=== PATIENT | male | born 1960 | race Caucasian/White ===

== ENCOUNTER 2021-12-30 08:04 | Outpatient (REF) | payer BC, SELFPAY ==
[2021-12-30 11:46] LABS: Alanine Aminotransferase 29 U/L (0-40); Albumin Level 4.2 g/dL (3.5-5.0); Alkaline Phosphatase 82 U/L (39-117); Anion Gap 8 (12-20); Aspartate Amino Transferase 23 U/L (5-37); Bilirubin Total 0.9 mg/dL (0.0-1.0); Blood Urea Nitrogen 19 mg/dL (9-16); Calcium 9.1 mg/dL (8.4-10.2); Carbon Dioxide 32 mmol/L (22-29); Chloride 106 mmol/L (96-108); Cholesterol 172 mg/dL; Estimated Glomerular Filt Rate > 60; Glucose Fasting 93 mg/dL (60-99); HDL Cholesterol 50 mg/dL; LDL Cholesterol Calculated 105 mg/dl; Potassium 3.9 mmol/L (3.3-5.1); Sodium 142 mmol/L (135-145); Total Protein 6.8 g/dL (6.5-8.0); Triglycerides 88 mg/dL
== END 2021-12-30 08:05 | disposition home or self-care (01) ==
LOC: HO.MANLDS 08:04
PROVIDERS: PCP Internal Medicine; Visit Provider Internal Medicine
DX: Z12.5 Encounter for screening for malignant neoplasm of prostate (principal); I10 Essential (primary) hypertension
CPT/HCPCS: 36415; 80053; 80061; 84153

== ENCOUNTER 2023-08-18 09:59 | Outpatient (REF) | payer BC, SELFPAY ==
[2023-08-18 13:54] LABS: Appearance Urine Clear; Color Urine Yellow; Glucose Urine UA Negative (Negative); Leukocyte Esterase Urine Negative (Negative); Nitrite Urine Negative (Negative); PH 6.5 (5.0-9.0); Specific Gravity - Urine 1.015 (1.005-1.025); Urine Blood Negative (Negative); Urine Ketones Negative (Negative); Urine Protein Negative (Neg-Trace)
== END 2023-08-18 10:00 | disposition home or self-care (01) ==
LOC: HO.MANLDS 09:59
PROVIDERS: Visit Provider Physician Assistant
DX: R31.9 Hematuria, unspecified (principal)
CPT/HCPCS: 81003

== ENCOUNTER → 2025-01-03 08:47 | Outpatient (BNVA) | payer OTHER, SELFPAY | PROVIDERS: PCP Internal Medicine; Visit Provider Physician Assistant | DX: S00.83XA Contusion of other part of head, initial encounter (principal); S70.01XA Contusion of right hip, initial encounter; W18.30XA Fall on same level, unspecified, initial encounter | CPT/HCPCS: 73502; 99204 ==

== ENCOUNTER → 2025-01-08 08:49 | Outpatient (BNVA) | payer OTHER, SELFPAY | PROVIDERS: PCP Internal Medicine; Visit Provider Internal Medicine | DX: S70.02XA Contusion of left hip, initial encounter (principal); W00.0XXA Fall on same level due to ice and snow, initial encounter | CPT/HCPCS: 99213 ==

== ENCOUNTER 2025-01-09 16:02 | Outpatient (REF) | payer OTHER, SELFPAY ==
[2025-01-09 18:45] LABS: Prostate Specific Antigen 0.84 ng/mL (<0.05-4.0)
--- OUTSIDE RECORDS SUMMARY | 2025-01-09 19:37 | XMS_ITS | Continuity of Care Document ---
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 2 OUT OF 3 ELEMENTS: PROBLEMS, DATA OR RISK ELEMENT 1: PROBLEMS ADDRESSED 1 OR MORE CHRONIC ILLNESS WITH EXACERBATION OR 2 OR MORE STABLE CHRONIC ILLNESSES OR 1 UNDIAGNOSED NEW PROBLEM OR 1 ACUTE ILLNESS W/SYMPTOMS OR 1 ACUTE COMPLICATED INJURY ELEMENT 2: DATA MUST MEET 1 OF 3 CATEGORIES CATEGORY 1: REVIEW OF PRIOR EXTERNAL NOTES, REVIEW OF RESULTS, ORDERING OF EACH TEST, ASSESSMENT REQUIRING INDEPENDENT HISTORIAN OR CATEGORY 2: INDEPENDENT INTERPRETATION OF TESTS BY ANOTHER PHYSICIAN OR SPECIALIST OR CATEGORY 3: DISCUSSION OF MGT OR TEST INTERPRETATION W/EXTERNAL PHYSICIAN OR SPECIALIST ELEMENT 3: RISK RISK OF COMPLICATIONS AND/OR MORBIDITY OR MORTALITY OF PATIENT MANAGEMENT PROVIDER MUST THOROUGHLY DOCUMENT EACH ELEMENT THAT IS COVERED Not available 01/09/2025 15:55:42 Plan of Treatment Reminders Order Date Submit Date Provider Last Modified By Organization Details Last Modified Time Details Appointments FOLLOW UP 15 2024 03:30P M DR PONCE Not available Not available Not available Lab PSA, serum or plasma 2024 025 [facility], [address], [place], [address], 01/09/2025 15:58:18 Referral None recorded. Procedures None recorded. Surgeries None recorded. Imaging None recorded. Medication Orders cyclobenz aprine 10 mg tablet 2024 025 [id number], [address] [place] [address], [id number], 01/09/2025 16:00:22 Patient TargetsNo targets recorded. Patient Instructions Encounter Date Encounter Id Patient Instructions Last Modified By Organization Details Last Modified Time 01/09/2025 [id number] pulse oximetry* Not available 01/09/2025 15:57:11 sleep apnea: car e instructions Not available 01/09/2025 15:57:12 frequent urination: care instructions Not available 01/09/2025 15:57:12 back care and preventing injuries: care instructions Not available 01/09/2025 16:00:16 getting back to normal after low back pain: care instructions Not available 01/09/2025 16:00:16 learning about relief for back pain Not available 01/09/2025 16:00:16 Reason for Referral None Reported. Results Created Date Observation Date Name Description Value Unit Range Abnormal Flag Note LastModifiedBy Organization Detail LastModifiedTime 01/09/2001/09/2025 pulse oxime try* Result 97 % Not Available [facility] [address] [facility] [address], [place], [address], 01/08/2025 15:30:47 01/03/2001/03/2025 XR, hip + pelvi s, bilat eral No observ ation record ed. [facility] (Medical Records) [address] [place] [address], [id number], 01/03/2025 09:53:26 Result Notes None recorded. Problems Name Problem SNOMED Code Status Onset Date Resolution Date Notes Provider Name and Address Organization Details Recorded Time Hypertensi ve disorder 61464972 Active 2017 Not Available [facility] 14:43:22 Rupture of Achilles tendon 844640903 Active 2017 Not Available [facility] 14:43:22 Venous varices 170566121 Active 2017 Not Available [facility] 14:43:22 Tendinitis 59727495 Active 2017 Not Available [facility] 14:43:22 Kidney stone 25282574 Active 2017 Not Available [facility] 14:43:22 Ureteric stone 04978186 Active 2017 Not Available [facility] 14:43:22 Superficia l thrombophl ebitis 2250888 Active 2017 7 Not Available [facility] 14:43:22 Obstructiv e sleep apnea syndrome 32887534 Active 2021 Richi Ponce, DO [address] [place] [address], [phone], [facility] 2 16:23:38 Aortic ejection murmur 462268055 Active 2021 Richi Ponce [address], [address], [facility] 2 12:15:16 Thrombophl ebitis of superficia l veins of lower extremity 11800607 Active 2021 JAIRON DUARTE [address] [place] [address], [phone], [facility] 2 14:19:05 Onychomyco sis of toenails 991749101 Active 2021 Richi Ponce DO [address] [place] [address], [phone], [facility] 2 10:40:12 Increased frequency of urination 748876831 Active 2024 Richi Ponce DO [address] [place] [address], [phone], [facility] 5 15:55:52 Low back pain 884798881 Active 2024 Richi Ponce [address], [address], [facility] 5 15:59:38 Problem Notes None recorded. Medical Equipment None Reported. Allergies No known drug allergies Medications Name Sig Start Date Stop Date Status Note LastModified by Organization Details LastModified Time fluarix quadrivalent 6124-4274 .5 ml michelle 03/12 completed Not Available Not Available Not Available amlodipine besylate 5 mg tabs 03/12 completed Not Available Not Available Not Available pramipexole dihydrochlor alexa 1 mg tabs 03/12 completed Not Available Not Available Not Available afluria quadrivalent .5 ml michelle 01/17 completed Not Available Not Available Not Available lisinopril 5 mg tabs 01/17 completed Not Available Not Available Not Available cyclobenzapr ine 10 mg tablet Take 1 tablet 3 times a day by oral route as needed for 7 days. 2024 active Not Available Not Available Not Avai lable pramipexole 1 mg tablet Take 1 tablet every day by oral route at bedtime for 30 days. 03/12 completed Not Available Not Available Not Available doxycycline hyclate 100 mg capsule TAKE 1 CAPSULE BY MOUTH TWICE DAILY FOR 10 DAYS 11/03 completed Not Available Not Available Not Available meloxicam 15 mg tablet TAKE 1 TABLET BY MOUTH EVERY DAY WITH A MEAL FOR 14 DAYS 11/03 completed Not Available Not Available Not Available amlodipine 5 mg tablet TAKE 1 TABLET BY MOUTH EVERY DAY 08/24 completed Not Available Not Available Not Available terbinafine HCl 250 mg tablet TAKE 1 TABLET BY MOUTH EVERY DAY 08/24 completed Not Available Not Available Not Available amlodipine 10 mg tablet Take 1 tablet every day by oral route for 90 days. active Not Available Not Available No t Available lisinopril 10 mg tablet Take 1 tablet every day by oral route for 30 days. 09/05 completed Not Available Not Available Not Available losartan 25 mg tablet Take 2 tablets daily. active Not Available Not Available No t Available lisinopril 5 mg tablet take 1 tablet by mouth once daily 09/05 completed Not Available Not Available Not Available Boostrix Tdap 2.5 Lf unit-8 mcg-5 Lf/0.5 mL intramuscula r syringe ADM 0.5ML IM UTD 03/11 completed Not Available Not Available Not Available Afluria Quad (PF) 60 mcg (15 mcg x 4)/0.5 mL IM syringe 08/09 completed Not Available Not Available Not Available Fluarix Quad (PF) 60 mcg (15 mcg x 4)/0.5 mL IM syringe ADM 0.5ML IM UTD 03/11 completed Not Available Not Available Not Available Vitals Date Recorded Body height Body mass index (BMI) Body weight Heart rate Oxygen saturation Oxygen saturation in Arterial blood by Pulse oximetry Systolic blood pressure Diastolic blood pressure Provider Name and Address Organization Details Last Updated DateTime 5 180.34 cm 26.8 kg/m2 67178.7 4 g 74 /min 97 % 97 % 128 mm[Hg] 82 mm[Hg] Richi Ponce, DO [address] [place], [address] [place] [address] Internal Medicine 5 15:31:19 Social History Question Answer Notes LastModified by Organizat ion Details LastModified Time Tobacco Smoking Status Never Smoker Not Available [facility] 09/17/2020 03:36:23 What Is Your Level Of Alcohol Consumption? None [id number] Information not available 09/17/2020 What Is Your Level Of Caffeine Consumption? Occasional 1 Cup Per Day [id number] Information not available 09/17/2020 What Was The Date Of Your Most Recent Tobacco Screening? 01/09/2025 Information not available 01/09/2025 Sex: Unknown Functional Status Question Answer Note LastModified by Organizat ion Details LastModified Time What is your exercise level? Occasional walking for work [id number] Information not available 09/17/2020 Mental Status None recorded. Family History Nothing Reported. Medical History No medical history recorded. Immunizations Vaccine Type Date Status Note Provider Nam e and Address Organization Details Recorded Time Influenza, split virus, quadrivalent, preservative 8 completed Not Available [facility] 07/26/2023 15:50:55 Influenza, split virus, quadrivalent, preservative 1 completed Not Available [facility] 07/26/2023 15:50:55 COVID-19, mRNA, LNP-S, PF, 30 mcg/0.3 mL dose 1 completed Not Available [facility] 07/26/2023 15:50:55 COVID-19, mRNA, LNP-S, PF, 30 mcg/0.3 mL dose 1 completed Not Available [facility] 07/26/2023 15:50:56 influenza, unspecified formulation 2 completed Not Available [facility] 07/26/2023 15:50:56 Influenza, split virus, quadrivalent, preservative 9 completed Not Available [facility] 07/26/2023 15:50:55 Tdap 0 completed Not Available [facility] 07/26/2023 15:50:56 Influenza, split virus, quadrivalent, preservative 0 completed Not Available [facility] 07/26/2023 15:50:55 COVID-19, mRNA, LNP-S, PF, 30 mcg/0.3 mL dose 1 completed Not Available [facility] 07/26/2023 15:50:55 Past Encounters Encounter ID Performer Location Encounter Start Date Encounter Closed Date Diagnosis/Indication Diagnosis SNOMED-CT Code Diagnosis ICD10 Code Diagnosis Note [id number] Richi Ponce DO [facility] [address] [address] 01/09/2025 15:22:11 01/09/2025 16:06:46 Obstructive sleep apnea syndrome 81469850 G47.33 doing well with his machine and is sleeping well Depression screening 171 397768 Z13.31 neg Hypertensive disorder 38 469267 I10 amlodipine 5mg is doing well also with 50 of losartan recheck in couple weeks Increased frequency of urination 439498697 R35.0 offered tamsulosin Low back pain 651865475 M54.50 Health Concerns Section Related Observation LastModified by Organization Detai ls LastModified Time None Recorded Concern Status LastModified by Organization Details LastModified Time None Recorded Payers Encounter Date Sequence Insurance Name Policy Number Policy Claros Covered Member ID Claros Member ID Guarantor Name 01/09/2025 1 [facility] [place] [id number] Niels Chowdhury [id number] Niels Chowdhury Notes Date Note Type Note Provider Name and Address Organization Details Recorded Time 5 text/htm l Care Management - HypertensionReported bypatient.Self Care:not under emotional stress Severity:symptoms are improving; does not interfere with daily activities Associated Symptoms:no dizziness; no lightheadedness; no chest pain; no shortness of breath; no palpitations; no edema; no calf muscle cramps; no blurred vision; no confusion; no headaches; no fatigue had a fall 6 weeks ago at homerelates that he hurt his right ribs and had felt a snap at the time but did not go to ER no xrays then he fell at work and injured his left low backhad to go to back to work clinic and will have to follow up there xrays were done and reported as negno tx Richi Ponce, DO [address] [facility], [place], [address], [facility] 01/09/2025 16:00:31
--- OUTSIDE RECORDS SUMMARY | 2025-01-09 19:37 | XMS_ITS | Data Portability ---
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 REVIEW OF PRIOR EXTERNAL NOTES/RESULTS, ORDERING OF TEST(S) CATEGORY 2. 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 Procedures None recorded. Surgeries None recorded. Imaging US, abdomen + pelvis - kidney stone vs pyeloneph ritis 2022 023 [facility], [address] [place], [address], 08/25/2023 08:40:15 US, echocardi ogram, transthor acic, complete, w/ color flow 2021 022 [email or web address] Not available 03/27/2022 08:14:14 Medication Orders cyclobenz aprine 10 mg tablet 2024 025 [facility], [address], [place], [id number], 01/09/2025 16:00:22 terbinafi ne HCl 250 mg tablet 2021 [email or web address] [place] [address] [facility], [address] [place] [address], [id number], 08/24/2023 10:31:36 doxycycli ne hyclate 100 mg capsule 2021 022 [facility]68, [address] [place] [address], [id number], 11/03/2022 08:23:03 meloxicam 15 mg tablet 2021 022 [facility] #46251, [address] [place] [address], [id number], 11/03/2022 10:24:10 Patient TargetsNo targets recorded. Patient Instructions Encounter Date Encounter Id Patient Instructions Last Modified By Organization Details Last Modified Time 01/09/2025 [id number] pulse oximetry* Not available 01/09/2025 15:57:11 sleep [...] oxime try* Result 97 % Not Available [facility] [address] [facility] [address], [place], [address], 01/08/2025 15:30:47 07/29/2007/29/2022 US, echoT3 MOTION arGlycobiao gram, trans thora cic, compl ete, w/ color flow No observ ation record ed. [facility] [address], [place], [address], 08/11/2022 11:46:06 09/08/2009/08/2022 cardi ac stres s test No observ ation record ed. [email or web address] Not Available 2021 14:52:26 10/06/2010/05/2022 brandan r monit or No observ ation record ed. [facility] [address], [place], [address], 10/06/2022 14:39:41 07/26/20 23 07/21/2023 US, echoc ardio gram No observ ation record ed. [email or web address] [address], [place], [address], 07/26/2023 14:04:40 11/11/20 24 11/10/2024 trans -thor acic echoc ardio gram (TTE) (PROC ) No observ ation record ed. [email or web address] [facility] [address], [place], [address], 11/13/2024 08:39:52 01/03/20 25 01/03/2025 XR, hip + pelvi s, bilat eral No observ ation record ed. [facility] (Medical Records) [address] [facility], [place], [address], 01/03/2025 09:53:26 Result Notes None recorded. Problems Name Problem SNOMED Code Status Onset Date Resolution Date Notes Provider Name and Address Organization Details Recorded Time Hypertensi ve disorder 42857796 Active 2017 Not Available [facility] 14:43:22 Rupture of Achilles tendon 853590176 Active 2017 Not Available [facility] 14:43:22 Venous varices 889710127 Active 2017 Not Available [facility] 14:43:22 Tendinitis 98977426 Active 2017 Not Available [facility] 14:43:22 Kidney stone 93509484 Active 2017 Not Available [facility] 14:43:22 Ureteric stone 91006588 Active 2017 Not Available [facility] 14:43:22 Superficia l thrombophl ebitis 4834337 Active 2017 7 Not Available [facility] 14:43:22 Obstructiv e sleep apnea syndrome 09729390 Active 2021 Richi Ponce, DO [address] [facility], [place], [address], [facility] 2 16:23:38 Aortic ejection murmur 223158429 Active 2021 Richi Ponce DO [address] [place] [address], [address], [facility] 2 12:15:16 Thrombophl ebitis of superficia l veins of lower extremity 94669112 Active 2021 JAIRON DUARTE [address] [place], [address], [facility] 2 14:19:05 Onychomyco sis of toenails 331944188 Active 2021 Richi Ortegaadalberto DO [address] [place] [address], [address], [facility] 2 10:40:12 Increased frequency of urination 520408751 Active 2024 Richi JoyceJuan J Ponce DO [address] [place] [address], [address], [facility] 5 15:55:52 Low back pain 693056953 Active 2024 Richi Giorgi OrtegaDO adalberto [address] [place] [address], [address], [facility] 5 15:59:38 Problem Notes None recorded. Procedures Surgical History None recorded. Imaging Results Imaging Date Name Status LastModified by Organization Details LastModified Time 07/29/2022 US, echocardiogram, transthoracic, complete, w/ color flow completed [facility] [address], [place], [address], 08/11/2022 11:46:06 09/08/2022 cardiac stress test completed [email or web address] Information not available 09/08/2022 14:52:26 10/05/2022 holter monitor completed [facility] [address], [place], [address], 10/06/2022 14:39:41 07/21/2023 US, echocardiogram completed [facility] [address], [place], [address], 07/26/2023 14:04:40 11/10/2024 trans-thoracic echocardiogram (TTE) (PROC) completed [email or web address] [facility] [address], [place], [address], 11/13/2024 08:39:52 01/03/2025 XR, hip + pelvis, bilateral completed [email or web address] [facility] (Medical Records) [address] [place], [address], 01/03/2025 09:53:26 Procedure Notes None recorded. Medical Equipment None Reported. Allergies No known drug allergies Medications Name Sig Start Date Stop Date Status Note LastModified by Organization Details LastModified Time fluarix quadrivalent 1528-1900 .5 ml michelle 03/12 completed Not Available Not Available Not Available amlodipine besylate 5 mg tabs 03/12 completed Not Available Not Available Not Available pramipexole dihydrochlor alexa 1 mg tabs 03/12 completed Not Available Not Available Not Available afluria quadrivalent 2303-9130 .5 ml michelle 01/17 completed Not Available [...] Available Not Available Vitals Date Recorded Body weight Heart rate Oxygen saturation Oxygen saturation in Arterial blood by Pulse oximetry Systolic blood pressure Diastolic blood pressure Systolic blood pressure Diastolic blood pressure Provider Name and Address Organization Details Last Updated DateTime 2 19018.0 1 g 64 /min 97 % 97 % 120 mm[Hg] 72 mm[Hg] 144 mm[Hg] 86 mm[Hg] Richi Ponce, DO [address] [place], [address], [facility] 2 11:57:16 Date Recorded Body height Oxygen saturation Oxygen saturation in Arterial blood by Pulse oximetry Heart rate Systolic blood pressure Diastolic blood pressure Provider Name and Address Organization Details Last Updated DateTime 2 180.34 cm 96 % 96 % 72 /min 150 mm[Hg] 70 mm[Hg] Heather Liriano [facility] 2 14:12:36 Date Recorded Body height Body mass index (BMI) Body weight Oxygen saturation Oxygen saturation in Arterial blood by Pulse oximetry Heart rate Systolic blood pressure Diastolic blood pressure Provider Name and Address Organization Details Last Updated DateTime 2 180.34 cm 26.3 kg/m2 02356.1 6 g 98 % 98 % 73 /min 118 mm[Hg] 60 mm[Hg] Heather Liriano [facility] 2 10:25:12 Date Recorded Body height Body mass index (BMI) Body weight Heart rate Oxygen saturation Oxygen saturation in Arterial blood by Pulse oximetry Systolic blood pressure Diastolic blood pressure Provider Name and Address Organization Details Last Updated DateTime 3 180.34 cm 27.7 kg/m2 50812.3 7 g 74 /min 98 % 98 % 140 mm[Hg] 82 mm[Hg] Nupur Monteiroult [facility] 3 10:30:36 Date Recorded Body height Body mass index (BMI) Body weight Heart rate Oxygen saturation Oxygen saturation in Arterial blood by Pulse oximetry Systolic blood pressure Diastolic blood pressure Provider Name and Address Organization Details Last Updated DateTime 5 180.34 cm 26.8 kg/m2 49228.7 4 g 74 /min 97 % 97 % 128 mm[Hg] 82 mm[Hg] Richi Ponce, DO [address] [place], [address], [facility] 5 15:31:19 Social History Question Answer Notes LastModified by [facility] Details LastModified Time Tobacco Smoking Status Never Smoker Not Available [facility] 09/17/2020 03:36:23 What Is Your Level Of Alcohol Consumption? None [id number] Information not available 09/17/2020 What Is Your Level Of Caffeine Consumption? Occasional 1 Cup Per Day [id number] Information not available 09/17/2020 What Was The Date Of Your Most Recent Tobacco Screening? 01/09/2025 Information not available 01/09/2025 Sex: Unknown Functional Status Question Answer Note LastModified by [facility] Details LastModified Time What is your exercise level? Occasional walking for work [id number] Information not available 09/17/2020 Mental Status None recorded. Family History Nothing Reported. Medical History No medical history recorded. Immunizations Vaccine Type Date Status Note Provider Nam e and Address Organization Details Recorded Time Influenza, split virus, quadrivalent, preservative 8 completed Not Available [facility] 07/26/2023 15:50:55 Influenza, split virus, quadrivalent, preservative 1 completed Not Available [facility] 07/26/2023 15:50:55 COVID-19, mRNA, LNP-S, PF, 30 mcg/0.3 mL dose 1 completed Not Available [facility] 07/26/2023 15:50:55 COVID-19, mRNA, LNP-S, PF, 30 mcg/0.3 mL dose 1 completed Not Available [facility] 07/26/2023 15:50:56 influenza, unspecified formulation 2 completed Not Available [facility] 07/26/2023 15:50:56 Influenza, split virus, quadrivalent, preservative 9 completed Not Available [facility] 07/26/2023 15:50:55 Tdap 0 completed Not Available [facility] 07/26/2023 15:50:56 Influenza, split virus, quadrivalent, preservative 0 completed Not Available [facility] 07/26/2023 15:50:55 COVID-19, mRNA, LNP-S, PF, 30 mcg/0.3 mL dose 1 completed Not Available [facility] 07/26/2023 15:50:55 Past Encounters Encounter ID Performer Location Encounter Start Date Encounter Closed Date Diagnosis/Indication Diagnosis SNOMED-CT Code Diagnosis ICD10 Code Diagnosis Note [id number] Richi Ponce [facility] [address] [place] [address] 08/09/2018 15:39:03 08/09/2018 16:33:47 Hypertensive disorder 57225850 I10 woill increase lisinopril to 10mg Lightheadedness 06933068 8 R42 [id number] Richi Ponce [facility] [address] [place] [address] 09/05/2018 14:40:23 09/05/2018 15:33:17 Hypertensive disorder 64576328 I10 will change med to amlodipine 5mg recheck in couple weeks Obstructiv e sleep apnea syndrome 91617720 G47.33 need referral [id number] Richi Ponce [facility] [address] [facility] [address] [address] 10/04/2018 15:53:02 10/04/2018 16:36:56 Hypertensive disorder 35272579 I10 will change med to amlodipine 5mg recheck in couple weeks Hepatitis C screening 41 5090333 Z11.59 Hearing loss 02208710 H9 0.3 [id number] Richi Ponce [facility] [address] [facility] [address] [address] 10/31/2018 15:31:56 10/31/2018 16:55:01 Hypertensive disorder 39812375 I10 will change med to amlodipine 5mg recheck in couple weeks Obstructiv e sleep apnea syndrome 94908552 G47.33 need referral [id number] Richi Ponce [facility] [address] [facility] [address] [address] 2019 10:53:07 2019 11:51:37 Adult health examination 908287630 Z00.00 doing very we;ll discussed lab and health Active or passive immunization 834348477 Z23 needs tdap and shingrix Restless legs 01414545 G 25.81 [place] need to [place] [id number] Richi Ponce [facility] [address] [facility] [address] [address] 03/12/2020 11:01:31 03/12/2020 11:32:57 Adult health examination 796755888 Z00.00 doing very we;ll discussed lab and health Active or passive immunization 371116494 Z23 needs tdap and shingrix [id number] Richi Ponce [facility] [address] [facility] [address] [address] 03/11/2021 16:04:32 03/11/2021 16:59:51 Hypertensive disorder 99400946 I10 will change med to amlodipine 5mg recheck in couple weeks [id number] Richi Ponce [facility] [address] [facility] [address] [address] 12/16/2021 08:37:17 12/17/2021 08:36:34 Hypertensive disorder 82256476 I10 amlodipine 5mg is doing well recheck in couple weeks Obstructiv e sleep apnea syndrome 82196276 G47.33 doing well with his machine and is sleeping well [id number] Richi CookJuan J Ponce, [facility] [address] [facility] [address] [address] 03/13/2022 11:35:07 03/13/2022 14:31:54 Active or passive immunization 102155752 Z23 will consider shingrix Aortic eje ction murmur 952897007 R01.1 [id number] JAIRON DUARTE [facility] [address] [facility] [address] [facility] [place] [address] 05/27/2022 14:06:16 05/27/2022 16:43:12 Thrombophlebitis of superficial veins of lower extremity 79194496 I80.299 will start on anti-infla mmatory and anti-bioti c [id number] Richi JoyceJuan J Ponce, [facility] [address] [facility] [address] [address] 11/03/2022 10:17:57 11/03/2022 15:51:31 Active or passive immunization 748959135 Z23 will consider shingrix Adult heal th examination 907196410 Z00.00 doing very we;ll discussed lab and healthhas lab ordered by cardiology for next mo Onychomyco sis of toenails 717630070 B35.1 [id number] [facility] [address] [facility] [address] [address] 08/24/2023 10:21:40 08/24/2023 10:57:20 Kidney stone 27003085 N20.0 will set up with US abdomen and pelvis due to blood in urine and hx of kidney stones Aortic eje ction murmur 014805100 R01.0 stable Superficia l thrombophlebitis 7272101 I80.9 stable History of calculus of kidney 720004358 Z87.442 checking for new stones Thrombophl ebitis of superficial veins of lower extremity 59848368 I80.299 stable [id number] Richi Ponce DO [facility] [address] [facility] [address] 01/09/2025 15:22:11 01/09/2025 16:06:46 Obstructive sleep apnea syndrome 91765628 G47.33 doing well with his machine and is sleeping well Depression screening 171 108044 Z13.31 neg Hypertensive disorder 38 989522 I10 amlodipine 5mg is doing well also with 50 of losartan recheck in couple weeks Increased frequency of urination 131521727 R35.0 offered tamsulosin Low back pain 371196884 M54.50 Health Concerns Section Related Observation LastModified by Organization Detai ls LastModified Time None Recorded Concern Status LastModified by Organization Details LastModified Time None Recorded Advance Directives Directive None Recorded Payers Encounter Date Sequence Insurance Name Policy Number Policy Claros Covered Member ID Claros Member ID Guarantor Name 03/13/2022 1 [place] [facility] [id number] Niels Chowdhury [id number] Niels Gutbier 05/27/2022 1 [place] [facility] [id number] Niels Garzaer [id number] Niels Gutbier 11/03/2022 1 [place] [facility] [id number] Niels Garzaer [id number] Niels Gutbier 08/24/2023 1 [place] [facility] [id number] Niels Garzaer [id number] Niels Gutbier 01/09/2025 1 [place] [facility] [id number] Niels Garzaer [id number] Niels Gutbier Notes Date Note Type Note Provider Name and Address Organization Details Recorded Time 2 text/htm l here for rechkadnis doing ok he is taking amoldipine at night due to some drowsiness'also he was found to have a murmur while at a [employer] physical Richi Ponce DO [address] [place], [address], [facility] 03/13/2022 12:19:46 2 text/htm l c/o redness and swelling of the right leg the patient has severe varicose veinshas a hx of superifical thrombophlebitis the varicose vein on his medial thigh is swollen and redtenderness to palpation no fever, no chills, no chest pain, no tachycardia or palpitations, no sob, no cough, no abd pain, no n/v/d given evaluation looks like active inflammation; possible infection will start on doxy and meloxicam for treatment start with cold compressed, 15 minutes three times a day or when he has down time JAIRON DUARTE [address] [place], [address], [facility] 05/27/2022 14:28:34 2 text/htm l Annual WellnessReported bypatient.Diet and Nutrition:healthy diet Fracture Risk:no history of fractures; no recent explained fracture; no sudden unexplained fractures; no previous musculoskeletal injuries Physical Activity:exercises on a regular basis; recent increase in physical activity; good physical condition Additional Lifestyle Factors:no tobacco use; no alcohol intake; stopped drinking alcohol Depression Risk:never feels sad, empty, or tearful; no loss of interest in activities; no significant changes in weight; no sleep disturbances or insomnia; no agitation; no loss of energy; no feelings of worthlessness or guilt; no thoughts of suicide; no history of depression; no history of mood disorders Hearing:no loss of hearing Vision:no vision problemsNotes:still very active at work actually doing well and is no issuesno cp no sob Richi Ponce DO [address] [place], [address], [facility] 11/03/2022 10:42:42 3 text/htm l ?kidney stones, hematuria the patient had frequent urination and flank painthe patient urinary symptoms the patient pain is better but still present, has been present for the past monththe patient reports the pain is ache like and occurs with certain positionsthe patient urine is darker, did have some blood in the urine (about 2 weeks ago) the patient had a urinalysis showed blood traceswill fu with USdeclined CT due to concern for radiationalso with blood in urine would like to fu with checking on his urinary tract JAIRON DUARTE [address] [place], [address], [facility] 08/24/2023 10:46:15 5 text/htm l Care Management - HypertensionReported [...] there xrays were done and reported as norma Ponce DO [address] [place], [address], [facility] 01/09/2025 16:00:31
== END 2025-01-09 16:03 | disposition home or self-care (01) ==
LOC: HO.MANLDS 16:02
PROVIDERS: Visit Provider Internal Medicine
DX: R35.0 Frequency of micturition (principal); Z12.5 Encounter for screening for malignant neoplasm of prostate
CPT/HCPCS: 36415; 84153

== ENCOUNTER → 2025-01-10 08:38 | Outpatient (BNVA) | payer OTHER, SELFPAY | PROVIDERS: PCP Internal Medicine; Visit Provider Internal Medicine | DX: S70.02XA Contusion of left hip, initial encounter (principal); W18.30XA Fall on same level, unspecified, initial encounter | CPT/HCPCS: 99213 ==

== ENCOUNTER 2025-10-05 07:21 | Outpatient (REF) | payer OTHER, BC, SELFPAY ==
--- OUTSIDE RECORDS SUMMARY | 2025-10-06 07:24 | XMS_ITS | Encounter Summary ---
Author Organization [facility] Address [address] [address] Phone Care Team Providers Care Color Technician Name Role Phone Richi Anand DO Primary Care Provider [phone] Richi Anand DO Unavailable Reason for Referral * Outpatient Procedure - Closed Specialty Diagnoses / Procedures Referred By Fredy george Referred To Contact Diagnoses Cardiac murmur, unspecified Procedures Adult Echo TTE Richi Anand DO Phone: tel: fax: [email or web address] Referral ID Status Reason Start Date Expiration Date Visits Re quested Visits Authorized [id number] Closed 03/13/2022 03/13/2023 1 1 Encounter Details Date Type Department Care Team (Late st Contact Info) Description 03/13/2022 Transcribe Orders Virtual Department [address] [place] [address] Richi Anand DO [address] [facility] [place] [address] [email or web address] Cardiac murmur, unspecified Social History Tobacco Use Types Packs/Day Years Used Date Smoking Tobacco: Never Assessed Sex and Gender Information Value Date Recorded Sex Assigned at Not on file Legal Sex Male 9:52 PM EDT Gender Identity Not on file Sexual Orientation Not on file documented as of this encounter Plan of Treatment Upcoming Encounters Date Type Department Care Team (Late st Contact Info) Description 04/20/2025 Procedure Pass Echo Lab [address] [place] [address] 10/29/2025 10:15 AM EST Appointment Echo Lab [address] [place] [address] Louis Vizcaino MD 22 [facility], [address] [place] [address] 11/06/2025 2:00 PM EST Office Visit [facility] [address] [place] [address] [address]rd Floor, [address] [place] [address] Frankie Collazo, [address] [address] documented as of this encounter Results * TTE COMPREHENSIVE (07/29/2022 1:15 PM EDT) Body Surface Area 1.99 m2 Height 177 cm Weight 82 kg Systolic BP 140 mmHg Diastolic BP 82 mmHg Left Atrium Dimension Anterior-Posterior 43 15 - 40 mm Aortic Valve Mean Gradient 2 mmHg Aortic Valve Time Velocity Integral 207 mm Aortic Valve Peak Velocity 103.0 cm/s Aortic Valve Peak Gradient 4 mmHg Aortic Sinus Diameter 36 mm Ascending Aorta Diameter 36 mm Inferior Vena Cava Diameter 20 0.0 - 21 mm Interventricular Septum Thickness 10 mm Left Ventricle Internal Diameter End Diastole 53 42 - 58 mm Left Ventricle Internal Diameter End Systole 36 25 - 40 mm Left Ventricular Outflow Tract Diameter 21.0 mm LVOT VTI REST 136 mm Left Ventricular Outflow Tract Velocity 0.7 m/s Left Ventricular Outflow Tract Gradient at Rest 2 mmHg Left Ventricular Posterior Wall Thickness 10 mm Ejection Fraction 60 50 - 75 Percent Mitral Valve A Wave Speed 62.9 cm/s Mitral Valve E Wave Speed 69.4 cm/s Right Ventricle Basal Diameter 32.8 25 - 41 mm Tricuspid Valve Peak Velocity 2.7 m/s Raw LV EF% 54 % Left Atrial Volume 69 mL Left Atrial Volume Index 34.67 mL/m2 Right Ventricle Peak Systolic Pressure 32 mmHg Right Ventricle TAPSE 29 mm Right Atrium Pressure Estimated 3 mmHg Right Ventricle to Right Atrium Pressure Gradient 29 mmHg Right Ventricle Pulse Doppler S Wave 12.0 cm/s Aortic Valve Sinus Index 1 18 20 - 32 mm Ascending Aorta Diameter 18 mm Aortic Sinus Index 18 mm Ascending Aorta Index 18 mm Anatomical Region Laterality Modality Heart Ultrasound Narrative 07/29/2022 4:31 PM EDT Normal LV size and wall thickness. LV systolic function is low normal with EF 55 to 60%. There are no clear wall motion abnormalities. Normal diastolic function. Normal RV size and function. The mitral valve is mildly thickened. There is at least moderate mitral regurgitation with a very eccentric, anteriorly directed jet. There is no evidence of mitral stenosis. An accurate estimation of pulmonary artery systolic pressure could not be made. The aortic root and ascending aorta are upper limit normal in size, each measuring 3.6 cm. Comparison is made to the prior study report dated August 2018. The degree of mitral regurgitation has significantly worsened. LV function remains low normal. Recommend consideration of KEITH to better assess this very eccentric MR jet. Left Ventricle The left ventricular cavity size and wall thickness are normal. Left ventricular systolic function is normal. There are no segmental left ventricular wall motion abnormalities noted. The estimated ejection fraction is 60% (Normal 50-75%). The left ventricular ejection fraction was measured by the single dimension method. Left ventricular diastolic function appears within normal limits for age. There is no evidence of left ventricular thrombus. Right Ventricle The right ventricular size is normal. The right ventricular systolic function is normal. Left Atrium The left atrium is dilated. The left atrial anterior-posterior dimension measures 43 mm (normal 15-40 mm). The LA volume is 69 mL. The LA volume index is 34.67 mL/m2 (normal indexed value is 16-34 mL/m2). The pulmonary venous flow profiles are normal. Right Atrium The right atrium is normal in size. The IVC measures 20 mm (normal <=21 mm). The IVC demonstrates normal collapse with inspiration which is consistent with normal RA pressure. Mitral Valve E/A ratio is 1.1. E/E' avg is 8.3. Lat E' velocity is 7.94cm/s. Med E' velocity is 8.81cm/s. There is no evidence of mitral stenosis. There is moderate to severe mitral regurgitation detected by spectral and color Doppler. Tricuspid Valve There is no evidence of tricuspid stenosis. There is evidence of trace tricuspid regurgitation by color and spectral Doppler. Normal pulmonary pressure. Aortic Valve The aortic valve is tricuspid. There is no evidence of valvular aortic stenosis. The peak aortic valve gradient is 4 mmHg. The mean aortic gradient is 2 mmHg. There is no evidence of aortic regurgitation by color and spectral Doppler. The visualized portions of the thoracic aorta appear normal. Pulmonic Valve There is no evidence of pulmonic stenosis. There is evidence of mild pulmonary regurgitation by color and spectral Doppler. Interatrial Septum The interatrial septum appears normal. General Findings The image quality was good (2). Technique(s) used in the evaluation: Color flow Doppler and Spectral Doppler. The predominant rhythm during the study was sinus. Comparison Findings Compared to a prior TTE from 08/18/2018 Richi Anand DO CV ECHO ORDERABLES Final Result documented in this encounter Visit Diagnoses Diagnosis Cardiac murmur, unspecified Cardiac murmur, unspecified documented in this encounter Care Teams Color Technician Relationship Specialty Start Date End Date Richi Anand DO PCP - General 08/31/17 Richi Anand DO [address] [place] [address] Insurance Assigned Provider 02/19/24 documented as of this encounter Additional Source Comments The information contained in this document represents components of the legal health record. It is not the complete legal health record.[facility]
--- OUTSIDE RECORDS SUMMARY | 2025-10-06 07:24 | XMS_ITS | Encounter Summary ---
Author Organization [facility] Address [address] [facility] [address] [place] [address] Phone Care Team Providers Care Clipper Operator Name Role Phone Richi Anand DO Primary Care Provider [phone] Richi Anand DO Unavailable Encounter Details Date Type Department Care Team (Late st Contact Info) Description 08/25/2022 Procedure Pass Non-Invasive Cardiology [address] [place] [address] Social History Tobacco Use Types Packs/Day Years [...] Info) Description 04/20/2025 Procedure Pass Echo Lab [address] [place] [address] 10/29/2025 10:15 AM EST Appointment Echo Lab [address] [place] [address] Louis Vizcaino MD 22 [facility], [address] [place] [address] 11/06/2025 2:00 PM EST Office Visit [facility] [address] Floor, [address] [place] [address] Frankie Collazo, [address] [place] [address] documented as of this encounter Visit Diagnoses Not on filedocumented in this encounter Care Teams Clipper Operator Relationship Specialty Start Date End Date Richi Anand DO PCP - General 08/31/17 Richi Anand DO [address] [place] [id number] Insurance Assigned Provider 02/19/24 documented as of this encounter Additional Source Comments The information contained in this document represents components of the legal health record. It is not the complete legal health record.[facility]
--- OUTSIDE RECORDS SUMMARY | 2025-10-06 07:24 | XMS_ITS | Clinical Summary ---
Author Organization [facility] Address [address] [address] Phone Care Team Providers Care Marketing Officer Name Role Phone JordanRichi glover Primary Care Provider [phone] JordanRichi glover Unavailable Allergies No known active allergies Medications aspirin 81 MG EC tablet Take 1 tablet (81 mg total) by mouth daily. 90 tablet 5 04/20/2025 Active rosuvastatin (CRESTOR) 10 MG tablet Take 1 tablet (10 mg total) by mouth daily. 90 tablet 5 04/20/2025 Active amLODIPine (NORVASC) 10 MG tablet TAKE 1 TABLET(10 MG) BY MOUTH DAILY 90 tablet 3 07/02/2025 Active losartan (COZAAR) 100 MG tablet Take 1 tablet (100 mg total) by mouth daily. 90 tablet 3 07/05/2025 Active Active Problems Problem Noted Date Diagnosed Date Dyspnea on exertion 08/25/2022 Assessment & Plan (08/25/2022 5:40 PM EDT): He does get some dyspnea on exertion along with palpitations we will do a stress test pressure is not ischemic. Palpitations 08/25/2022 Assessment & Plan (08/25/2022 5:41 PM EDT): Does have mild palpitation on exertion. We will do a Holter monitor to make sure he does not have atrial fibrillation or any other atrial arrhythmias for Mitral regurgitation 08/25/2022 Assessment & Plan (08/25/2022 5:39 PM EDT): His mitral regurgitation was reported in 2018 echocardiogram I reviewed today with the family. Time he had normal LV with EF of 55 to 60% and mitral regurgitation was mild. His left ventricular dimensions where 48 and 34 mm diastolic and systolic respectively. His LA volume index was 17 mL per metered square LA volume was 34 mL. He came for another echocardiogram 2021 his mitral regurgitation was reported as moderate. About left-sided chamber sizes his LV size had increased to diastolic 53 mm end-systolic 36 mm. His left atrium is also dilated now measures 43 mm. LA volume is 69 mL. The LA volume index is 34.67 mL. So we see that in 4 years is mild mitral regurgitation becomes moderately severe and his LA and LV are mildly enlarged. Still there is no indication for mitral valve repair or mitral valve replacement. Patient is very minimally symptomatic he has no heart failure symptoms and he does complain of some palpitation and shortness of breath when we ask him closely. Point I do not think we need to do any repair of mitral valve. Essential hypertension 08/25/2022 Assessment & Plan (08/25/2022 5:42 PM EDT): His tells me that his blood pressure is always high at home over 140. We discussed increasing amlodipine from 5 mg to 10 mg daily so he will do that. Effect from amlodipine has been reported. Resolved Problems Problem Noted Date Diagnosed Date Resolved Date Palpitations 08/25/2022 08/25/2022 Encounters Date Type Department Care Team Description 09/10/2025 Orders Only [facility] [address], [address] [place] [address] Louis Vizcaino MD Right leg pain (Primary Dx) 09/10/2025 Telephone [facility] [address], [address] [place] [address] Louis Vizcaino MD 08/10/2025 8:22 AM EDT - 08/10/2025 11:59 PM EDT Hospital Encounter [facility] [address] [place] [address] Louis Vizcaino MD Discharge Disposition: Home or Self Care from Last 3 Months Family History Medical History Relation Comments Heart disease Mother Hypertension Mother Relation Status Comments Mother Social History Tobacco Use Types Packs/Day Years Used Date Smoking Tobacco: Never Smokeless Tobacco: Never Tobacco Cessation:Counseling Given: Not Answered Education Answer Date Recorded Are you interested in more education? Not on real e 03/12/2023 Are you concerned about learning? Not on file 03/12/2023 No 03/12/2023 No 03/12/2023 Digital Access Answer Date Recorded No 04/12/2023 No 04/12/2023 Reliable internet access at home? Not on file 04/12/2023 Device with a working camera? Not on file Sex and Gender Information Value Date Recorded Sex Assigned at Not on file Legal Sex Male 9:52 PM EDT Gender Identity Not on file Sexual Orientation Not on file Last Filed Vital Signs Vital Sign Reading Time Taken Comments Blood Pressure 150/80 04/20/2025 9:30 AM EDT Pulse 63 04/20/2025 9:30 AM EDT Temperature 36.5 C (97.7 F) 02/11/2022 2:18 PM EDT Respiratory Rate 16 02/11/2022 2:18 PM EDT Oxygen Saturation 99% 04/20/2025 9:30 AM EDT Inhaled Oxygen Concentration - - Weight 88.7 kg (195 lb 9.6 oz) 04/20/2025 9:30 A M EDT Height 177.8 cm (5' 10 ) 11/21/2024 2:45 PM EST Body Mass Index 28.07 11/21/2024 2:45 PM EST Plan of Treatment Upcoming Encounters Date Type Department Care Team (Late st Contact Info) Description 04/20/2025 Procedure Pass Echo Lab [address] [place] [address] 10/29/2025 10:15 AM EST Appointment Echo Lab [address] [place] [address] Louis Vizcaino MD 22 [facility], [address] [place] [address] [email or web address] 11/06/2025 2:00 PM EST Office Visit [facility] [address], [address] [place] [address] Frankie Collazo, OPERATIONS PROGRAM MANAGER [address] [place] [address] [email or web address] Health Maintenance Due Date Last Done Comments DEPRESSION SCREENING 1970 COLOGUARD 2003 COLONOSCOPY 2003 COLORECTAL CANCER SCREENING 2003 FIT TEST 2003 FOBT 2003 SIGMOIDOSCOPY 2003 VIRTUAL COLONOSCOPY 2003 PNEUMOCOCCAL VACCINES (50+ years) (1 of 1 - PCV) 01/18/2008 ZOSTER VACCINES (1 of 2) 01/18/2008 INFLUENZA VACCINE (#1) 2025 , 09/06/2021, 08/07/2020, Additional history exists COVID-19 VACCINE ( season) 2025 10/14/2021, 02/26/2021, 02/01/2021 BLOOD PRESSURE 10/20/2025 04/20/2025 CREATININE LEVEL 05/04/2026 05/04/2025, 11/14/2024 LIPID PANEL 05/04/2026 05/04/2025, 10/17, 12/04/2022, Additional history exists POTASSIUM LEVEL 05/04/2026 05/04/2025, 11/14/2024 SCREENING FOR DIABETES 05/04/2028 05/04/2025 Adult Td,Tdap Booster 04/12/2030 04/12/2020 RSV VACCINE (1 - 1-dose 75+ series) 2033 HEPATITIS C SCREENING Completed 04/10/2020 SMOKING STATUS SCREENING (Once After 26 Yrs) Completed 08/08/2024 HEPATITIS A VACCINES Aged Out No long er eligible based on patient's age to complete this topic HIB VACCINES Aged Out No longer eligi ble based on patient's age to complete this topic MENINGOCOCCAL VACCINES (ACWY) Aged Out No longer eligible based on patient's age to complete this topic MENINGOCOCCAL VACCINES (B) Aged Out N o longer eligible based on patient's age to complete this topic Medical Devices Not on file Procedures Procedure Name Priority Date/Time Associated Diagnosis Comments US LOWER EXTREMITY VEINS REFLUX EVALUATION DUPLEX COMPLETE (BILATERAL) Routine 08/10/2025 9:42 AM EDT Coronary artery disease involving big sandy coronary artery of big sandy heart without angina pectoris Nonrheumatic mitral valve regurgitation Essential hypertension Dyspnea on exertion Mitral valve insufficiency, unspecified etiology LIPID PANEL Routine 05/04/2025 8:31 AM EDT Coronary artery disease involving big sandy coronary artery of big sandy heart without angina pectoris Nonrheumatic mitral valve regurgitation Essential hypertension Dyspnea on exertion Mitral valve insufficiency, unspecified etiology COMPREHENSIVE METABOLIC PANEL (CMP) Routine 05/04/2025 8:31 AM EDT Coronary artery disease involving big sandy coronary artery of big sandy heart without angina pectoris Nonrheumatic mitral valve regurgitation Essential hypertension Dyspnea on exertion Mitral valve insufficiency, unspecified etiology from Last 3 Months or Most Recently Relevant to Health Maintenance Results * US Lower Extremity Veins Reflux Evaluation Duplex Complete (Bilateral) (08/10/2025 9:42 AM EDT) Height 178 cm Weight 89 kg RIGHT GREAT SAPH VEIN SAPHENO-FEM JUNCT VALVE CLOSURE TIME 4.0 sec GSV Vein Sapheno-Femoral Junction Yessenia Transverse 0.8 cm Prox Great Saphenous Vein Thigh Valve Closure Time 4.6 sec Prox Great Saphenous Vein Thigh Diameter Transverse 0.7 cm Mid Great Saphenous Vein Thigh Valve Closure Time 3.3 sec Mid Great Saphenous Vein Thigh Diameter Transverse 0.6 cm Dist Great Saphenous Vein Thigh Valve Closure Time 1.7 sec Dist Great Saphenous Vein Thigh Diameter Transverse 0.7 cm Knee Great Saphenous Vein Valve Closure Time 2.8 sec Knee Great Saphenous Vein Diameter Transverse 0.6 cm Prox Great Saphenous Vein Calf Valve Closure Time 4.2 sec Prox Great Saphenous Vein Calf Diameter Transverse 0.6 cm Mid Great Saphenous Vein Calf Valve Closure Time 2.6 sec Mid Great Saphenous Vein Calf Diameter Transverse 0.5 cm Dist Great Saphenous Vein Calf Valve Closure Time 0.8 sec Dist Great Saphenous Vein Calf Diameter Transverse 0.4 cm Common Femoral Valve Closure Time 1.0 sec Prox Femoral Valve Closure Time 1.3 sec Med Malleolus 1 Diameter 0.4 mm Great Saph Vein Sapheno-Fem Junct Valve Closure Time 4.3 sec Great Saphenous Vein Sapheno-Femoral Junction Yessenia Transverse 0.8 cm Prox Great Saphenous Vein Thigh Valve Closure Time 3.7 sec Prox Great Saphenous Vein Thigh Diameter Transverse 0.7 cm Mid Great Saphenous Vein Thigh Valve Closure Time 4.8 sec Mid Great Saphenous Vein Thigh Diameter Transverse 0.5 cm Dist Great Saphenous Vein Thigh Valve Closure Time 5.6 sec Dist Great Saphenous Vein Thigh Diameter Transverse 0.6 cm Knee Great Saphenous Vein Closure time 0.9 sec Knee Great Saphenous Vein Diameter Transverse 0.6 cm Prox Great Saphenous Vein Calf Valve Closure Time 1.1 sec Prox Great Saphenous Vein Calf Diameter Transverse 0.3 cm Mid Great Saphenous Vein Calf Diameter Transverse 0.3 cm Dist Great Saphenous Vein Calf Diameter Transverse 0.3 cm Anatomical Region Laterality Modality Ultrasound Narrative 08/13/2025 9:56 AM EDT Findings: There is no evidence of acute deep or superficial venous thrombus in either lower extremity. 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 The small saphenous vein is competent. The great saphenous vein is incompetent as reported above. Largest diameter 0.77cm, smallest 0.35cm. 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 Left lower venous extremity: There is deep system valvular incompetence of the femoral vein. The small saphenous vein is competent. The great saphenous vein is incompetent as reported above. Largest diameter 0.77, smallest 0.28cm. Maximum reflux time is 5.6 seconds There are varicosities in the left thigh and calf most likely needing phlebectomy procedure. Lower Venous Left COMMON FEMORAL VEIN normal compressibility and flow characteristics FEMORAL VEIN normal compressibility and flow characteristics POPLITEAL VEIN normal compressibility and flow characteristics GASTROCNEMIUS normal compressibility and flow characteristics POSTERIOR TIBIAL VEINS normal compressibility and flow characteristics PERONEAL VEINS not seen GREAT SAPHENOUS VEIN normal compressibility and flow characteristics SMALL SAPHENOUS VEIN normal compressibility and flow characteristics GREAT SAPHENOUS VEIN REFLUX FINDINGS Sapheno-Femoral Junction: reflux present Proximal thigh: reflux present Mid thigh: reflux present Distal thigh: reflux present Knee: reflux present Proximal calf: reflux present Lower Venous Right COMMON FEMORAL VEIN normal compressibility and flow characteristics FEMORAL VEIN normal compressibility and flow characteristics POPLITEAL VEIN normal compressibility and flow characteristics GASTROCNEMIUS normal compressibility and flow characteristics POSTERIOR TIBIAL VEINS normal compressibility and flow characteristics PERONEAL VEINS normal compressibility and flow characteristics GREAT SAPHENOUS VEIN normal compressibility and flow characteristics SMALL SAPHENOUS VEIN normal compressibility and flow characteristics GREAT SAPHENOUS VEIN REFLUX FINDINGS Sapheno-Femoral Junction: reflux present Proximal thigh: reflux present Mid thigh: reflux present Distal thigh: reflux present Knee: reflux present Proximal calf: reflux present Mid calf: reflux present Distal calf: reflux present SMALL SAPHENOUS VEIN REFLUX FINDINGS Popliteal Fossa: no reflux OTHER REFLUX FINDINGS Common Femoral Vein: reflux present Proximal Femoral Vein: reflux present Introductory Comments Techniques used for this study included: color flow Doppler and spectral waveform Doppler. us Louis Vizcaino MD US VASCULAR Final Resul t * Comprehensive metabolic panel (05/04/2025 8:31 AM EDT) SODIUM 141 133 - 146 mmol/L [facility] POTASSIUM 4.1 3.3 - 5.1 mmol/L [facility] CHLORIDE 104 96 - 108 mmol/L [facility] CO2 27 21 - 35 mmol/L [facility] BUN 15 6 - 19 mg/dL [facility] CREATININE 1.20 0.5 - 1.5 mg/dL [facility] GLUCOSE 96 70 - 99 mg/dL [facility] ALBUMIN 4.2 3.9 - 4.8 g/dL [facility] TOTAL PROTEIN 7.0 6.5 - 8.0 g/dL [facility] CALCIUM 9.4 8.4 - 10.3 mg/dL [facility] ALKALINE PHOSPHATASE 95 39 - 117 U/L [facility] TOTAL BILIRUBIN 0.7 0.0 - 1.2 mg/dL [facility] AST 23 0 - 37 U/L [facility] ALT 22 0 - 40 U/L [facility] GLOBULIN 2.8 1 - 4.8 g/dL [facility] EGFR 66 >59 mL/min/1.7 3m2 [facility] Comment:Estimated glomerular filtration rate calculated using the CKD-EPI refit equation. ANION GAP 14 10 - 20 mmol/L [facility] Blood 05/04/2025 8:31 AM EDT 05/04/2025 8:40 AM EDT Louis Vizcaino MD LAB BLOOD BKR ORDERABLES Fi nal Result Performing Organization Address [facility]/ZIP Co de Phone Number [address] [address] * (ABNORMAL) Lipid panel (05/04/2025 8:31 AM EDT) HDL 48 mg/dL [facility] Comment: Interpretation <40 mg/dL: Low HDL cholesterol (major risk factor for CHD) Greater than or equal to 60 mg/dL: High HDL cholesterol ( negative risk factor for CHD) HDL - cholesterol is affected by a number of factors, e.g. smoking, excerise, hormones, sex and age. CHOLESTEROL 98 0 - 240 mg/dL [facility] TRIGLYCERIDES 81 30 - 160 mg/dL [facility] LDL 34(L) 50 - 129 mg/dL [facility] Comment: LDL levels in terms of risk for coronary heart disease: <100 mg/dL: Optimal 100-129 mg/dL: Near or above optimal 130-159 mg/dL: Borderline high 160-189 mg/dL: High >190 mg/dL: Very High CARDIAC RISK RATIO 2.0(L) 3.4 - 5.0 [facility] Blood 05/04/2025 8:31 AM EDT 05/04/2025 8:40 AM EDT Louis Vizcaino MD LAB BLOOD BKR ORDERABLES Fi nal Result Performing Organization Address City/[facility]/ZIP Co de Phone Number [address] [address] from Last 3 Months or Most Recently Relevant to Health Maintenance [place] [address] [place] [address] Care Teams Marketing Officer Relationship Specialty Start Date End Date Richi Anand DO PCP - General 08/31/17 Richi Anand DO [address] [place] [id number] [email or web address] Insurance Assigned Provider 02/19/24 Additional Source Comments The information contained in this document represents components of the legal health record. It is not the complete legal health record.[facility]
--- OUTSIDE RECORDS SUMMARY | 2025-10-06 07:24 | XMS_ITS | Data Portability ---
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 Lab urinalysis complete, reflex culture 2024 025 [facility], [address] [place] [address], [place], [address], 16:49:05 cytology, urine 2024 025 [facility], [address] [place] [address], [place], [address], 5 16:49:05 PSA, serum or plasma 2024 025 [facility], [address] [facility], [place], [address], 5 12:22:12 Referral urologist referral - results of urine, ct scan will be forwarded 2024 025 [email or web address] Nazario Polanco MD, [address] [facility], [place], [address], 5 08:46:49 Procedures None recorded. Surgeries None recorded. Imaging CT, abdomen + pelvis, w/wo contrast 2024 025 [facility], [address] [place], [address], 5 08:46:49 US, abdomen + pelvis - kidney stone vs pyelonephr itis 2022 023 [email or web address] [facility], [address] [place], [address], 3 08:40:15 Medication Orders cyclobenza halina 10 mg tablet 2024 025 [place] [id number], [address] [place] [address], [id number], 5 16:13:03 terbinafin e HCl 250 mg tablet 2021 022 [email or web address] Not available 3 10:31:36 doxycyclin e hyclate 100 mg capsule 2021 022 [email or web address] Not available 2 08:23:03 meloxicam 15 mg tablet 2021 022 [email or web address] Not available 2 10:24:10 Patient TargetsNo targets recorded. Patient Instructions Encounter Date Encounter Id Patient Instructions Last Modified By Organization Details Last Modified Time 01/09/2025 [id number] pulse oximetry* Not available 01/09/2025 15:57:11 sleep apnea: car e instructions Not available 01/09/2025 15:57:12 frequent urination: care instructions Not available 01/09/2025 15:57:12 back care and preventing injuries: care instructions Not available 01/09/2025 16:00:16 getting back to normal after low back pain: care instructions Not available 01/09/2025 16:00:16 learning about relief for back pain Not available 01/09/2025 16:00:16 10/03/2025 [id number] blood in the urine: care instructions Not available 10/03/2025 16:47:45 Reason for Referral Urologist Referral for Micro scopic hematuria results of urine, ct scan will be forwarded Referring Physician: Richi Anand, Internal Medicine, Encounter Date: 10/03/2025 Results Created Date Observation Date Name Description Value Unit Range Abnormal Flag Note LastModifiedBy Organization Detail LastModifiedTime 01/09/2001/09/2025 pulse oxime try* Result 97 % Not Available [facility] [address] [facility] [address], [place], [address], 01/08/2025 15:30:47 07/29/20 22 07/29/2022 US, echoc ardio gram, trans thora cic, compl ete, w/ color flow No observ ation record ed. [facility] [address], [place], [address], 08/11/2022 11:46:06 09/08/2009/08/2022 cardi ac stres s test No observ ation record ed. [email or web address] Not Available 2021 14:52:26 10/06/2010/05/2022 brandan r monit or No observ ation record ed. [facility] [address], [place], [address], 10/06/2022 14:39:41 07/26/20 23 07/21/2023 US, echoc ardio gram No observ ation record ed. [email or web address] [facility] [address], [place], [address], 07/26/2023 14:04:40 11/11/20 24 11/10/2024 trans -thor acic echoc ardio gram (TTE) (PROC ) No observ ation record ed. [email or web address] [facility] [address], [place], [address], 11/13/2024 08:39:52 01/03/20 25 01/03/2025 XR, hip + pelvi s, bilat eral No observ ation record ed. [facility] (Medical Records) [address] [facility], [place], [address], 01/03/2025 09:53:26 Result Notes None recorded. Problems Name Problem SNOMED Code Status Onset Date Resolution Date Notes Provider Name and Address Organization Details Recorded Time Hypertensi ve disorder 33689754 Active 2017 Not Available [facility] 14:43:22 Rupture of Achilles tendon 835063849 Active 2017 Not Available [facility] 14:43:22 Venous varices 815221400 Active 2017 Not Available [facility] 14:43:22 Tendinitis 92997243 Active 2017 Not Available [facility] 14:43:22 Kidney stone 94989739 Active 2017 Not Available [facility] 14:43:22 Ureteric stone 28075824 Active 2017 Not Available [facility] 14:43:22 Superficia l thrombophl ebitis 2041730 Active 2017 7 Not Available [facility] 14:43:22 Obstructiv e sleep apnea syndrome 70675789 Active 2021 Richi Anand, DO [address] [facility], [place], [address], [facility] 2 16:23:38 Aortic ejection murmur 377275690 Active 2021 Richi Anand DO [address] [place] [address], [address], [facility] 2 12:15:16 Thrombophl ebitis of superficia l veins of lower extremity 47128762 Active 2021 JAIRON DUARTE [address] [place] [address], [address], [facility] 2 14:19:05 Onychomyco sis of toenails 573588284 Active 2021 Richi Anand DO [address] [place] [address], [address], [facility] 2 10:40:12 Increased frequency of urination 770625822 Active 2024 Richi Anand DO [address] [place] [address], [address], [facility] 5 15:55:52 Low back pain 296398182 Active 2024 Richi Anand DO [address] [place] [address], [address], [facility] 5 15:59:38 Severe mitral valve regurgitat ion 203260213 Active 2024 Richi Anand DO [address] [place] [address], [address], [facility] 5 16:43:17 Microscopi c hematuria 299720870 Active 2024 Richi Anand DO [address] [place] [address], [address], [facility] 5 16:43:30 Problem Notes None recorded. Medical Equipment None Reported. Allergies No known drug allergies Medications Name Sig Start Date Stop Date Status Note LastModified by Organization Details LastModified Time afluria quadrivalent 3515-2858 .5 ml michelle 01/17 completed Not Available Not Available Not Available pramipexole dihydrochlor alexa 1 mg tabs 03/12 completed Not Available Not Available Not Available lisinopril 5 mg tabs 01/17 completed Not Available Not Available Not Available fluarix quadrivalent 6406-1279 .5 ml michelle 03/12 completed Not Available Not Available Not Available amlodipine besylate 5 mg tabs 03/12 completed Not Available Not Available Not Available cyclobenzapr ine 10 mg tablet TAKE 1 TABLET BY MOUTH THREE TIMES DAILY FOR 7 DAYS NEEDED 10/03 completed Not Available Not Available Not Available pramipexole 1 mg tablet Take 1 tablet [...] completed Not Available Not Available Not Available aspirin 81 mg tablet,delay ed release TAKE 1 TABLET BY MOUTH EVERY DAY active Not Available Not Available No t Available terbinafine HCl 250 mg tablet TAKE [...] completed Not Available Not Available Not Available rosuvastatin 10 mg tablet Take 1 tablet every day by oral route. active Not Available Not Available No t Available Boostrix Tdap 2.5 Lf unit-8 mcg-5 [...] (BMI) Body weight Heart rate Oxygen saturation Systolic And Diastolic Provider Name and Address Organization Details Last Updated DateTime 5 180.34 cm 26.8 kg/m2 82260.7 4 g 74 /min 97 % 128/82 mm[Hg] Richi Anand, DO [address] [place], [address], [facility] 5 15:31:19 Date Recorded Body height Oxygen saturation Heart rate Systolic And Diastolic Provider Name and Address Organization Details Last Updated DateTime 05/27/2022 180.34 cm 96 % 72 /min 150/70 mm[Hg] Heather Liriano [facility] 05/27/2022 14:12:36 Date Recorded Body height Body mass index (BMI) Body weight Heart rate Oxygen saturation Systolic And Diastolic Provider Name and Address Organization Details Last Updated DateTime 3 180.34 cm 27.7 kg/m2 47044.3 7 g 74 /min 98 % 140/82 mm[Hg] Nupur Mcleod [facility] 3 10:30:36 Date Recorded Body height Body mass index (BMI) Body weight Heart rate Oxygen saturation Systolic And Diastolic Provider Name and Address Organization Details Last Updated DateTime 5 180.34 cm 26.8 kg/m2 81438.7 4 g 80 /min 95 % 130/80 mm[Hg] Bessie Hernández [facility] 5 16:14:21 Date Recorded Body height Body mass index (BMI) Body weight Oxygen saturation Heart rate Systolic And Diastolic Provider Name and Address Organization Details Last Updated DateTime 2 180.34 cm 26.3 kg/m2 53085.1 6 g 98 % 73 /min 118/60 mm[Hg] Heather Liriano [facility] 2 10:25:12 Social History Question Answer Notes LastModified by Organizat ion Details LastModified Time Tobacco Smoking Status Never Smoker Not Available [facility] 09/17/2020 03:36:23 What Is Your Level Of Caffeine Consumption? Occasional 1 Cup Per Day [id number] Information not available 09/17/2020 What Was The Date Of Your Most Recent Tobacco Screening? 10/03/2025 [email or web address] Information not available 10/03/2025 Sex: Unknown Functional Status Question Answer Note LastModified by Organizat ion Details LastModified Time What is your level of alcohol consumption? None [id number] Information not available 09/17/2020 What is your exercise level? Occasional walking for work [id number] Information not available 09/17/2020 Mental Status None recorded. Family History Nothing Reported. Medical History No medical history recorded. Immunizations Vaccine Type Date Status Note Provider Nam e and Address Organization Details Recorded Time Influenza, split virus, quadrivalent, preservative 8 completed Not Available [facility] 07/26/2023 15:50:55 Influenza, split virus, quadrivalent, preservative 1 completed Not Available [facility] 07/26/2023 15:50:55 COVID-19, mRNA, LNP-S, PF, 30 mcg/0.3 mL dose 1 completed Not Available [facility] 07/26/2023 15:50:55 COVID-19, mRNA, LNP-S, PF, 30 mcg/0.3 mL dose 1 completed Not Available [facility] 07/26/2023 15:50:56 influenza, unspecified formulation 2 completed Not Available [facility] 07/26/2023 15:50:56 Influenza, split virus, quadrivalent, preservative 9 completed Not Available [facility] 07/26/2023 15:50:55 Tdap 0 completed Not Available [facility] 07/26/2023 15:50:56 Influenza, split virus, quadrivalent, preservative 0 completed Not Available [facility] 07/26/2023 15:50:55 COVID-19, mRNA, LNP-S, PF, 30 mcg/0.3 mL dose 03/28/202 1 completed Not Available [facility] 07/26/2023 15:50:55 Past Encounters Encounter ID Performer Location Encounter Start Date Encounter Closed Date Diagnosis/Indication Diagnosis SNOMED-CT Code Diagnosis ICD10 Code Diagnosis IMO Codes Diagnosis Note [id number] Richi Anand [facility] [address] [facility], [place] [facility] [place] [address] 08/09/2018 15:39:03 08/09/2018 16:33:47 Hypertensive disorder 11217891 I10 woill increase lisinopril to 10mg Lightheadedness 57955961 8 R42 [id number] Richi Anand [facility] [address] [facility], [address] [facility] [place] [address] 09/05/2018 14:40:23 09/05/2018 15:33:17 Hypertensive disorder 18635104 I10 will change med to amlodipine 5mg recheck in couple weeks Obstructiv e sleep apnea syndrome 58351011 G47.33 need referral [id number] Richi Anand [facility] [address] [facility] [address] 10/04/2018 15:53:02 10/04/2018 16:36:56 Hypertensive disorder 80729548 I10 will change med to amlodipine 5mg recheck in couple weeks Hepatitis C screening 41 3838368 Z11.59 Hearing loss 34395790 H9 0.3 [id number] Richi Anand [facility] [address] [facility], [place] [address] 10/31/2018 15:31:56 10/31/2018 16:55:01 Hypertensive disorder 89495080 I10 will change med to amlodipine 5mg recheck in couple weeks Obstructiv e sleep apnea syndrome 83173284 G47.33 need referral [id number] Richi Anand [facility] [address] [facility], [place] [address] 2019 10:53:07 2019 11:51:37 Adult health examination 707475675 Z00.00 doing very we;ll discussed lab and health Active or passive immunization 544211947 Z23 needs tdap and shingrix 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 [place] to [place] [id number] Richi Anand [facility] [address] [facility] [address] [address] 03/12/2020 11:01:31 03/12/2020 11:32:57 Adult health examination 294338812 Z00.00 doing very we;ll discussed lab and health Active or passive immunization 286764215 Z23 needs tdap and shingrix [id number] Richi Anand [facility] [address] [facility] [address] [address] 03/11/2021 16:04:32 03/11/2021 16:59:51 Hypertensive disorder 59200098 I10 will change med to amlodipine 5mg recheck in couple weeks [id number] Richi Anand [facility] [address] [facility] [address] [place] [facility] [place] [address] 12/16/2021 08:37:17 12/17/2021 08:36:34 Hypertensive disorder 06666475 I10 amlodipine 5mg is doing well recheck in couple weeks Obstructiv e sleep apnea syndrome 84541857 G47.33 doing well with his machine and is sleeping well [id number] Richi Anand [facility] [address] [facility] [address] [address] 03/13/2022 11:35:07 03/13/2022 14:31:54 Active or passive immunization 144666068 Z23 will consider shingrix Aortic eje ction murmur 366875688 R01.1 [id number] Richi Anand [facility] [address] [facility] [address] [address] 05/27/2022 14:06:16 05/27/2022 16:43:12 Thrombophlebitis of superficial veins of lower extremity 72478963 I80.299 will start on anti-infla mmatory and anti-bioti c [id number] Richi Anand [facility] [address] [facility] [address] [address] 11/03/2022 10:17:57 11/03/2022 15:51:31 Active or passive immunization 115962477 Z23 will consider shingrix Adult heal th examination 501033447 Z00.00 doing very we;ll discussed lab and healthhas lab ordered by cardiology for next mo Onychomyco sis of toenails 902203173 B35.1 [id number] Richi Anand [facility] [address] [facility], [address] [place] [address] 08/24/2023 10:21:40 08/24/2023 10:57:20 Kidney stone 97332257 N20.0 will set up with US abdomen and pelvis due to blood in urine and hx of kidney stones Aortic eje ction murmur 651653351 R01.0 stable Superficia l thrombophlebitis 5954264 I80.9 stable History of calculus of kidney 616633100 Z87.442 checking for new stones Thrombophl ebitis of superficial veins of lower extremity 20051843 I80.299 stable [id number] Richi Anand [facility] [address] [facility],[place] [address] 01/09/2025 15:22:11 01/09/2025 16:06:46 Obstructive sleep apnea syndrome 23099832 G47.33 doing well with his machine and is sleeping well Depression screening 171 074747 Z13.31 neg Hypertensive disorder 38 895504 I10 amlodipine 5mg is doing well also with 50 of losartan recheck in couple weeks Increased frequency of urination 171185949 R35.0 offered tamsulosin Low back pain 812645867 M54.50 [id number] Richi Anand [facility] [address] [facility], [place] [address] 10/03/2025 16:04:33 10/05/2025 08:46:49 Depression screening 422318364 Z13.31 neg Hypertensive disorder 38 116342 I10 amlodipine 5mg is doing well also with 50 of losartan recheck in couple weeks Obstructiv e sleep apnea syndrome 50852313 G47.33 doing well with his machine and is sleeping well Severe traci ral valve regurgitation 958374737 I34.0 [id number] Microscopic hematuria 19 3476104 R31.29 [id number] Health Concerns Section Related Observation LastModified by Organization Detai ls LastModified Time None Recorded Concern Status LastModified by Organization Details LastModified Time None Recorded Advance Directives Directive None Recorded Payers Insurance Date Sequence Insurance Name Policy Number Policy Claros Covered Member ID Claros Member ID Guarantor Name 01/09/2025 1 [facility] Niels Chowdhury [id number] Niels Chowdhury 10/01/2025 1 [facility] [id number] Niels Chowdhury [id number] Niels Chowdhury Notes Date Note Type Note Provider Name and Address Organization Details Recorded Time 2 text/htm l ROS as noted in the HPI c/o redness and swelling of the right [...] when he has down time JAIRON DUARTE [address] [place] [address], [address], [facility] 05/27/2022 14:28:34 2 text/htm l Annual WellnessReported by PatientSocial/Behavioral HistoryFor diet and nutrition, patient reportshealthy diet. For fracture risk, patient reportsno history of fractures,no recent explained fracture,no sudden unexplained fractures, andno previous musculoskeletal injuries. For physical activity, patient reportsexercises on a regular basis,recent increase in physical activity, andgood physical condition. For additional lifestyle factors, patient reportsno tobacco use,no alcohol intake, andstopped drinking alcohol.Mental Status:For depression risk, patient reportsnever feels sad, empty, or tearful,no loss of interest in activities,no significant changes in weight,no sleep disturbances or insomnia,no agitation,no loss of energy,no feelings of worthlessness or guilt,no thoughts of suicide,no history of depression, andno history of mood disorders.Functional AbilityFor hearing, patient reportsno loss of hearing. For vision, patient reportsno vision problems.still very active at workROS as noted in the HPI actually doing well and is no issuesno cp no sob Richi Anand, [address] [place], [address], [facility] 11/03/2022 10:42:42 3 text/htm l ROS as noted in the HPI ?kidney stones, hematuria the patient had frequent [...] on his urinary tract JAIRON DUARTE [address] [place], [address], [facility] 08/24/2023 10:46:15 5 text/htm l Care Management - HypertensionReported by PatientHPIFor self care, patient reportsnot under emotional stress. For severity, patient reportssymptoms are improvinganddoes not interfere with daily activities. For associated symptoms, patient reportsno dizziness,no lightheadedness,no chest pain,no shortness of breath,no palpitations,no edema,no calf muscle cramps,no blurred vision,no confusion,no headaches, andno fatigue.ROS as noted in the HPI had a fall 6 weeks ago at [...] done and reported as negno tx Richi Anand DO [address] [place], [address], [facility] 01/09/2025 16:00:31 5 text/htm l Care Management - HypertensionReported by PatientHPIFor self care, patient reportsnot under emotional stress. For severity, patient reportssymptoms are improvinganddoes not interfere with daily activities. For associated symptoms, patient reportsno dizziness,no lightheadedness,no chest pain,no shortness of breath,no palpitations,no edema,no calf muscle cramps,no blurred vision,no confusion,no headaches, andno fatigue. Obstructive Sleep Apnea F/UReported by PatientHPIFor quality, patient reportsno loud snoring,no gasping for air,no witnessed apnea,no hyponasal speech, andno frequent breathing through the mouth. For onset/timing, patient reportsresolved. For duration, patient reportsresolved. For severity, patient reportsdoes not limit daily activities,no frequent sore throats resulting in excess missed days from school / work per year,no difficulty getting going in the morning, andno awakening in the middle of the night with sore throat. For location, patient reportsno enlarged tonsils,no nasal passage blockage,no throat pain,no feeling of tightness in throat,no dryness of mouth, andno chest congestion. For context, patient reportsno lack of adequate sleep,no shift work,not currently taking medication to help sleep,no recent weight gain,no recent upper respiratory infection,no recent sick contacts,not worse with environmental exposure,not worse with seasonal allergen exposure,no hypertension, andnormal sleep hours. For aggravating factors, patient reportsnot worse during an upper respiratory infection (a cold)andnot worse when allergies are active. 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 10/03/2025 16:51:07
--- OUTSIDE RECORDS SUMMARY | 2025-10-06 07:24 | XMS_ITS | Encounter Summary ---
Author Organization [facility] Address [address] [address] Phone Care Team Providers Care Correctional Therapy Director Name Role Phone Richi Anand DO Primary Care Provider [phone] Richi Anand DO Unavailable Reason for Referral * Outpatient Procedure - Closed Specialty Diagnoses / Procedures Referred By Fredy george Referred To Contact Diagnoses Dizziness and giddiness Procedures Adult Echo TTE Richi Anand DO Phone: tel: fax: [email or web address] Referral ID Status Reason Start Date Expiration Date Visits Re quested Visits Authorized [id number] Closed 08/10/2018 08/10/2019 1 1 Encounter Details Date Type Department Care Team (Late st Contact Info) Description 08/10/2018 Ancillary Orders Virtual Department [address] [place] [address] Richi Anand DO [address] [facility] [address] [email or web address] Dizziness and giddiness Social History Tobacco Use Types Packs/Day Years [...] Info) Description 04/20/2025 Procedure Pass Echo Lab [address] [place] [address] 10/29/2025 10:15 AM EST Appointment Echo Lab [address] [place] [address] Louis Vizcaino MD 22 [facility], [address] [place] [address] 11/06/2025 2:00 PM EST Office Visit [facility] [address] [place] [address] 3rd Floor, [address] [place] [address] Frankie Collazo, CATTLE AND WHEAT FARMER [address] [place] [address] documented as of this encounter Results * TTE COMPREHENSIVE (08/18/2018 11:25 AM EDT) Body Surface Area 2.0 m2 Weight 79 kg Aortic Valve Peak Velocity 1,430.00 mm/s Aortic Valve Peak Gradient 8.00 mmHg Aortic Valve Mean Gradient 5.00 mmHg Aortic Valve Time Velocity Integral 344.00 mm Aortic Sinus Diameter 37 mm Ascending Aorta Diameter 34 mm Inferior Vena Cava Diameter 22 0.0 - 21 mm Interventricular Septum Thickness 8 mm Left Ventricle Internal Diameter End Diastole 48 42 - 58 mm Left Ventricle Internal Diameter End Systole 34 25 - 40 mm Left Ventricular Outflow Tract Diameter 22.00 mm LVOT VTI REST 141.00 mm Left Ventricular Outflow Tract Velocity 686.00 mm/s Left Ventricular Outflow Tract Gradient at Rest 2.00 mmHg Left Ventricular Posterior Wall Thickness 11 mm Ejection Fraction 56 50 - 75 Percent Mitral Valve Deceleration Time 322.00 ms Mitral Valve A Wave Speed 616.00 mm/s Mitral Valve E Wave Speed 475.00 mm/s Right Ventricle Basal Diameter 32.80 25 - 41 mm Tricuspid Valve Peak Velocity 2.60 mm/s Raw LV EF% 50 % Aortic Valve Sinus Index 1 19 20 - 32 mm Ascending Aorta Diameter 17 mm Aortic Sinus Index 19 mm Ascending Aorta Index 17 mm Mitral Valve Ea Septal Wave Speed 6.0 cm/s Mitral Valve Ea Lateral Wave Speed 6.7 cm/s Left Atrial Volume 34 mL Left Atrial Volume Index 17.00 mL/m2 Height 183 cm Systolic BP 149 mmHg Diastolic BP 97 mmHg Anatomical Region Laterality Modality Heart Ultrasound Narrative 08/18/2018 12:28 PM EDT Normal LV size and function EF 55-60%. Mild aortic insufficiency. Mild mitral regurgitation. Normal diastolic function for age. Left Ventricle The left ventricular cavity size and wall thickness are normal. Left ventricular systolic function is normal. There are no segmental left ventricular wall motion abnormalities noted. The estimated ejection fraction is 56% (Normal 50-75%). The left ventricular ejection fraction was measured by visual estimate. Left ventricular diastolic function appears within normal limits for age. There is no evidence of left ventricular thrombus. Right Ventricle The right ventricular size is normal. No evidence of right ventricular hypertrophy. Left Atrium The left atrium is normal in size. The LA volume is 34 mL. The LA volume index is 17 mL/m2 (normal indexed value is 16-34 mL/m2). The pulmonary venous flow profiles are normal. Pulmonary vein connections were not well seen. Right Atrium The right atrium is normal in size. The IVC is normal in size (2.1cm or less). The IVC measures 22 mm (normal <=21 mm). Mitral Valve The mitral valve appears normal. MV E/A 0.8 E/E1 7.5 There is no evidence of mitral stenosis. There is mild increased thickening of the anterior mitral valve leaflet. There is trace to mild mitral regurgitation detected by spectral and color Doppler. The jet of the mitral regurgitation is centrally directed. Tricuspid Valve The tricuspid valve appears normal. There is no evidence of tricuspid stenosis. TR pk Yakov is 2.6 m/s TR pk Pg is 27 mmHg. Assuming RAP is 3 mmHg., the RVSP is 30 mmHg.. Normal pulmonary pressures. There is evidence of trace to mild tricuspid regurgitation by color and spectral Doppler. Aortic Valve The aortic valve appears normal. The leaflets appear normal in thickness. The left coronary leaflet is thickened but there is no stenosis. There is no evidence of valvular aortic stenosis. The peak aortic valve gradient is 8 mmHg. The mean aortic gradient is 5 mmHg. There is evidence of trace aortic regurgitation by color and spectral Doppler. The jet is directed centrally. Ascending aorta appears within normal limits. Descending thoracic aorta appears within normal limits. Pulmonic Valve The pulmonary valve appears normal. There is no evidence of pulmonic stenosis. There is evidence of trace pulmonary regurgitation by color and spectral Doppler. Pericardium There is no evidence of pericardial effusion. There no evidence of a pleural effusion. Interatrial Septum The interatrial septum appears normal. Interventricular Septum Interventricular septal motion appears normal. General Findings The image quality was good (2). Patient appears to be in sinus rhythm with occasional PVC's. Color flow Doppler and Spectral Doppler used in the evaluation. Comparison Findings No prior studies for comparison. us Richi Anand DO CV ECHO ORDERABLES Final Result documented in this encounter Visit Diagnoses Diagnosis Dizziness and giddiness Dizziness and giddiness documented in this encounter Care Teams Correctional Therapy Director Relationship Specialty Start Date End Date Richi Anand DO PCP - General 08/31/17 Richi Anand DO [address] [place] [address] Insurance Assigned Provider 02/19/24 documented as of this encounter Additional Source Comments The information contained in this document represents components of the legal health record. It is not the complete legal health record.[facility]
--- OUTSIDE RECORDS SUMMARY | 2025-10-06 07:24 | XMS_ITS | Continuity of Care Document ---
Author Organization [place] [facility] Address [address] [facility] [place] [address] [place] [address] Assessment No assessment recorded. Plan of Treatment Reminders Order Date Submit Date Provider Last Modified By Organization Details Last Modified Time Details Appointments None recorded. Lab urinalysis complete, reflex culture 2024 [facility], [address] [place] [address], [place], [address], 16:49:05 cytology, urine 2024 025 [facility], [address] [place] [address], [place], [address], 5 16:49:05 Referral urologist referral - results of urine, ct scan will be forwarded 2024 025 [email or web address] Nazario Polanco MD, [address] [place] [address], [address], 5 08:46:49 Procedures None recorded. Surgeries None recorded. Imaging CT, abdomen + pelvis, w/wo contrast 2024 025 [email or web address] [facility], [address] [place], [address], 08:46:49 Medication Orders None recorded. Patient TargetsNo targets recorded. Patient Instructions Encounter Date Encounter Id Patient Instructions Last Modified By Organization Details Last Modified Time 10/03/2025 [id number] blood in the urine: care instructions Not available 10/03/2025 16:47:45 Reason for Referral Urologist Referral for Micro scopic hematuria results of urine, ct scan will be forwarded Referring Physician: Richi Anand, Internal Medicine, Encounter Date: 10/03/2025 Problems Name Problem SNOMED Code Status Onset Date Resolution Date Notes Provider Name and Address Organization Details Recorded Time Hypertensi ve disorder 90207975 Active 2017 Not Available [facility] 14:43:22 Rupture of Achilles tendon 786068699 Active 2017 Not Available [facility] 14:43:22 Venous varices 200684234 Active 2017 Not Available [facility] 14:43:22 Tendinitis 61388335 Active 2017 Not Available [facility] 14:43:22 Kidney stone 55691347 Active 2017 Not Available [facility] 14:43:22 Ureteric stone 59393548 Active 2017 Not Available [facility] 14:43:22 Superficia l thrombophl ebitis 5512434 Active 2017 7 Not Available [facility] 14:43:22 Obstructiv e sleep apnea syndrome 67537759 Active 2021 Richi Anand, DO [address] [place] [address], [address], [facility] 2 16:23:38 Aortic ejection murmur 657047452 Active 2021 Richi Anand DO [address] [place] [address], [address], [facility] 2 12:15:16 Thrombophl ebitis of superficia l veins of lower extremity 35667078 Active 2021 JAIRON DUARTE [address] [place] [address], [address], [facility] 2 14:19:05 Onychomyco sis of toenails 991335442 Active 2021 Richi Anand, DO [address] [place] [address], [address], [facility] 2 10:40:12 Increased frequency of urination 419286156 Active 2024 Richi Anand, DO [address] [place], [address], [facility] 5 15:55:52 Low back pain 302861774 Active 2024 Richi Anand, DO [address] [place] [address], [address], [facility] 5 15:59:38 Severe mitral valve regurgitat ion 902475730 Active 2024 Richi Anand, DO [address] [place] [address], [address], [facility] 5 16:43:17 Microscopi c hematuria 796794083 Active 2024 Richi Anand, DO [address] [place] [address], [address], [facility] 5 16:43:30 Problem Notes None recorded. Medical Equipment None Reported. Allergies No known drug allergies Medications Name Sig Start Date Stop Date Status Note LastModified by Organization Details LastModified Time afluria quadrivalent 4332-7913 .5 ml michelle 01/17 completed Not Available Not Available Not Available pramipexole dihydrochlor alexa 1 mg tabs 03/12 completed Not Available Not Available Not Available lisinopril 5 mg tabs 01/17 completed Not Available Not Available Not Available fluarix quadrivalent 2480-1952 .5 ml michelle 03/12 completed Not Available [...] Updated DateTime 5 180.34 cm 26.8 kg/m2 67484.7 4 g 80 /min 95 % 130/80 mm[Hg] [facility] 5 16:14:21 Social History Question Answer Notes LastModified by Organizat ion Details LastModified Time Tobacco Smoking Status Never Smoker Not Available [facility] 09/17/2020 03:36:23 What Is Your Level Of Caffeine Consumption? Occasional 1 Cup Per Day [id number] Information not available 09/17/2020 What Was The Date Of Your Most Recent Tobacco Screening? 10/03/2025 Information not available 10/03/2025 Sex: Unknown Functional Status Question Answer Note LastModified by Organizat ion Details LastModified Time What is your level of alcohol consumption? None [id number] Information not available 09/17/2020 What is your exercise level? Occasional walking for work [id number] Information not available 09/17/2020 Mental Status None recorded. Family History Nothing Reported. Medical History No medical history recorded. Immunizations Vaccine Type Date Status Note Provider Nam e and Address Organization Details Recorded Time Influenza, split virus, quadrivalent, preservative 8 completed Not Available [facility] 07/26/2023 15:50:55 Influenza, split virus, quadrivalent, preservative 1 completed Not Available [facility] 07/26/2023 15:50:55 COVID-19, mRNA, LNP-S, PF, 30 mcg/0.3 mL dose 1 completed Not Available [facility] 07/26/2023 15:50:55 COVID-19, mRNA, LNP-S, PF, 30 mcg/0.3 mL dose 1 completed Not Available [facility] 07/26/2023 15:50:56 influenza, unspecified formulation 2 completed Not Available [facility] 07/26/2023 15:50:56 Influenza, split virus, quadrivalent, preservative 9 completed Not Available [facility] 07/26/2023 15:50:55 Tdap 0 completed Not Available [facility] 07/26/2023 15:50:56 Influenza, split virus, quadrivalent, preservative 0 completed Not Available [facility] 07/26/2023 15:50:55 COVID-19, mRNA, LNP-S, PF, 30 mcg/0.3 mL dose 1 completed Not Available [facility] 07/26/2023 15:50:55 Past Encounters Encounter ID Performer Location Encounter Start Date Encounter Closed Date Diagnosis/Indication Diagnosis SNOMED-CT Code Diagnosis ICD10 Code Diagnosis IMO Codes Diagnosis Note [id number] DO [facility] [address] [facility] [address] [address] 10/03/2025 16:04:33 10/05/2025 08:46:49 Depression screening 553118064 Z13.31 neg Hypertensive disorder 38 583728 I10 amlodipine 5mg is doing well also with 50 of losartan recheck in couple weeks Obstructiv e sleep apnea syndrome 75922388 G47.33 doing well with his machine and is sleeping well Severe traci ral valve regurgitation 433192807 I34.0 8275089 Microscopic hematuria 19 1317387 R31.29 159886 Health Concerns Section Related Observation LastModified by Organization Detai ls LastModified Time None Recorded Concern Status LastModified by Organization Details LastModified Time None Recorded Payers Encounter Date Sequence Insurance Name Policy Number Policy Claros Covered Member ID Claros Member ID Guarantor Name 10/03/2025 1 [facility] [id number] Niels Chowdhury [id number] Niels Chowdhury Notes Date Note Type [...] no discomfort etc Richi Anand, DO 179 [facility], [place], [address], [facility] 10/03/2025 16:51:07
--- OUTSIDE RECORDS SUMMARY | 2025-10-06 07:24 | XMS_ITS | Encounter Summary ---
Author Organization [facility] Address [address] [facility] [address] [place] [address] Phone Care Team Providers Care Moth Proofer Name Role Phone Richi Anand DO Primary Care Provider [phone] Richi Anand DO Unavailable Encounter Details Date Type Department Care Team (Late st Contact Info) Description 01/06/2023 Procedure Pass Echo Lab [address] [place] [address] Social History Tobacco Use Types Packs/Day Years Used Date Smoking Tobacco: Never Smokeless Tobacco: Never Sex and Gender Information Value Date Recorded Sex Assigned at Not on file Legal Sex Male 9:52 PM EDT Gender Identity Not on file Sexual Orientation Not on file documented as of this encounter Plan of Treatment Upcoming Encounters Date Type Department Care Team (Late st Contact Info) Description 04/20/2025 Procedure Pass Echo Lab [address] [place] [address] 10/29/2025 10:15 AM EST Appointment Echo Lab [address] [place] [address] Louis Vizcaino MD 22 [facility], [address] [place] [address] 11/06/2025 2:00 PM EST Office Visit [facility] [address] [place] [address] 3rd Floor, [address] [place] [address] Frankie Collazo, DIRECTOR OF LEARNING [address] [place] [address] documented as of this encounter Visit Diagnoses Not on filedocumented in this encounter Care Teams Moth Proofer Relationship Specialty Start Date End Date Richi Anand DO [email or web address] PCP - General 08/31/17 Richi Anand DO [address] [place] [address] Insurance Assigned Provider 02/19/24 documented as of this encounter Additional Source Comments The information contained in this document represents components of the legal health record. It is not the complete legal health record.[facility]
--- OUTSIDE RECORDS SUMMARY | 2025-10-06 07:24 | XMS_ITS | Encounter Summary ---
Author Organization [facility] Address 399 [facility] [address] [place] [address] Phone Care Team Providers Care Insurance Sales Professional Name Role Phone Richi Anand DO Primary Care Provider [phone] Richi Anand DO Unavailable Encounter Details Date Type Department Care Team (Late st Contact Info) Description 03/13/2022 Procedure Pass [facility] [address] [place] [address] Social History Tobacco Use Types Packs/Day Years [...] Info) Description 04/20/2025 Procedure Pass Echo Lab [address] [place] [address] 10/29/2025 10:15 AM EST Appointment Echo Lab [address] [place] [address] Louis Vizcaino MD 22 [facility], [address] [place] [address] 11/06/2025 2:00 PM EST Office Visit [facility] [address] 3rd Floor, [address] [place] [address] Frankie Collazo, [address] [place] [address] documented as of this encounter Visit Diagnoses Not on filedocumented in this encounter Care Teams Insurance Sales Professional Relationship Specialty Start Date End Date Richi Anand DO PCP - General 08/31/17 Richi Anand DO [address] [place] [address] Insurance Assigned Provider 02/19/24 documented as of this encounter Additional Source Comments The information contained in this document represents components of the legal health record. It is not the complete legal health record.[facility]
--- OUTSIDE RECORDS SUMMARY | 2025-10-06 07:24 | XMS_ITS | Encounter Summary ---
Author Organization [facility] Address 399 [facility] [address] [place] [address] Phone Care Team Providers Care Embossing Unit Operator Name Role Phone Ricih Anand DO Primary Care Provider [phone] Richi Anand DO Unavailable Encounter Details Date Type Department Care Team (Latest Contact Info) Description 10/05/2022 Ancillary Orders [facility] [address] [place] [address] 3rd Floor, [address] [place] [address] Devon Mast MD [address] [place] [address], [address] [place] [phone] [email or web address] Dyspnea on exertion; Palpitations Social History Tobacco Use Types Packs/Day Years [...] Info) Description 04/20/2025 Procedure Pass Echo Lab [address] [place], [place] [id number] 10/29/2025 10:15 AM EST Appointment Echo Lab [address] [place] [address] Louis Vizcaino MD 22 [facility], [address] [place], [place] [id number] 11/06/2025 2:00 PM EST Office Visit [facility] [address]rd Floor, [address] [place] [address] Frankie Collazo, INSPECTOR [employer]ODUCTS [address] [place] [address] documented as of this encounter Results * Holter Monitor 24 Hours (10/05/2022 9:27 AM EST) Anatomical Region Laterality Modality Heart Other Narrative 10/05/2022 5:46 PM EST 24-hour Holter monitor report Underlying rhythm sinus rhythm Supraventricular beats less than 1% Ventricular beats less than 1% Minimum heart rate 44 at midnight Maximum heart rate 116 sinus patient had no symptoms 1 atrial run of 5 beats Few PVCs Conclusion Mildly abnormal Holter with few PVCs and 1 run of atrial beats Procedure Note Devon Mast MD - 10/05/2022 24-hour Holter monitor report Underlying rhythm sinus rhythm Supraventricular beats less than 1% Ventricular beats less than 1% Minimum heart rate 44 at midnight Maximum heart rate 116 sinus patient had no symptoms 1 atrial run of 5beats Few PVCs Conclusion Mildly abnormal Holter with few PVCs and 1 run of atrial beats Devon Mast MD [facility] Final Result documented in this encounter Visit Diagnoses Diagnosis Dyspnea on exertion Other dyspnea and respiratory abnormality Palpitations Dyspnea on exertion Other dyspnea and respiratory abnormality Palpitations documented in this encounter Care Teams Embossing Unit Operator Relationship Specialty Start Date End Date Richi Anand DO PCP - General 08/31/17 Richi Anand DO 179 [facility] [place] [address] [place] [address] Insurance Assigned Provider 02/19/24 documented as of this encounter Additional Source Comments The information contained in this document represents components of the legal health record. It is not the complete legal health record.[facility]
--- OUTSIDE RECORDS SUMMARY | 2025-10-06 07:24 | XMS_ITS | Encounter Summary ---
Author Organization [facility] Address [address] [place] [address] Phone Care Team Providers Care Heat Treatment Technician Name Role Phone Richi Anand DO Primary Care Provider Richi Anand DO Unavailable Encounter Details Date Type Department Care Team (Late Contact Info) Description 08/08/2024 Procedure Pass Echo Lab [address] [place] [address] Social History Tobacco Use Types Packs/Day Years Used Date Smoking Tobacco: Never Smokeless Tobacco: Never Education Answer Date Recorded Are you interested [...] Encounters Date Type Department Care Team (Late Contact Info) Description 04/20/2025 Procedure Pass Echo Lab [address] [place] [address] 10/29/2025 10:15 AM EST Appointment Echo Lab [address] [place] [address] Louis Vizcaino MD [address] [facility], [address] [place] [address] 11/06/2025 2:00 PM EST Office Visit [facility] 22 [facility] 3rd Floor, [address] [place] [address] Frankie Collazo, RN SUPPORT SERVICES [address] [place] [address] documented as of this encounter Visit Diagnoses Not on filedocumented in this encounter Care Teams Heat Treatment Technician Relationship Specialty Start Date End Date Richi Anand DO PCP - General 08/31/17 Richi Anand DO [address] [place] [address] [address] [place] [address] Insurance Assigned Provider 02/19/24 documented as of this encounter Additional Source Comments The information contained in this document represents components of the legal health record. It is not the complete legal health record.[facility]
== END 2025-10-05 07:22 | disposition home or self-care (01) ==
LOC: HO.LNP 07:21
PROVIDERS: Visit Provider Internal Medicine
DX: R31.29 Other microscopic hematuria (principal)
CPT/HCPCS: 88112